=== PATIENT | female | born 1945 | race Caucasian/White ===

== ENCOUNTER 2025-06-26 09:58 | Outpatient (CLI) | payer MEDICARE, OTHER, SELFPAY ==
--- OUTSIDE RECORDS SUMMARY | 2025-06-26 10:27 | XMS_ITS | Patient Health Record ---
Author Organization [facility] Address [address] [place], [place] [id number] Care Team Providers Care End Trimmer Name Role Phone RUPERTO RADHA Unavailable [phone] Irene Webb Unavailable Unavailable Allergies Allergen (clinical drug ingredient) Drug/Non Drug Allergy documented on EMR Reaction Allergy Type Onset Date Status Compazine Unknown Drug Allergy 03/27/2018 active Reason For Referral No Information Medications Medication SIG (Take, Route, Frequency, Duration) Notes Start Date End Date Status Eliquis 5 MG Oral; Duration: 90 Days Active Vital Signs Height-cm 157.48 cm 05/15/2025 Weight-kg 86.19 kg 05/15/2025 Height 62.00 in 05/15/2025 Weight 190.016 lbs 05/15/2025 BMI 34.75 kg/m2 05/15/2025 Encounters Encounter Location Date Provider Diagnosis [facility] [place] [address] [facility] [address] [place], [place] [id number] 05/15/2025 RADHA HICKEY Onychomycosis B35.1 ; Pain in right toe(s) M79.674 ; Pain in left toe(s) M79.675 and 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, bilateral legs I70.213 [facility] [address] [place], [place] [id number] 07/01/2024 RADHA HICKEY Onychomycosis B35.1 ; Pain in right toe(s) M79.674 ; Pain in left toe(s) M79.675 and 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, bilateral legs I70.213 [facility] [address] [place], [place] [id number] 09/02/2024 RADHA HICKEY Onychomycosis B35.1 ; Pain in right toe(s) M79.674 ; Pain in left toe(s) M79.675 and 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, bilateral legs I70.213 [facility] [place] [address] [place], [place] [id number] 11/05/2024 RADHA HICKEY Onychomycosis B35.1 ; Pain in right toe(s) M79.674 ; Pain in left toe(s) M79.675 and 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, bilateral legs I70.213 Assessments Encounter Date Diagnosis (ICD Code) Assessment Notes Treatment Notes Treatment Clinical Notes Section Notes 07/01/2024 Pain in right toe(s) (ICD-10 - M79.674) 07/01/2024 Onychomycosis (ICD-10 - B35.1) Nails 1-5 Bilateral were debrided extensively with nail nippers and emery board, reducing length and girth to pink healthy tissue with any subungual debris and necrotic tissue removed 09/02/2024 Onychomycosis (ICD-10 - B35.1) Nails 1-5 Bilateral were debrided extensively with nail nippers and emery board, reducing length and girth to pink healthy tissue with any subungual debris and necrotic tissue removed 11/05/2024 Onychomycosis (ICD-10 - B35.1) Nails 1-5 Bilateral were debrided extensively with nail nippers and emery board, reducing length and girth to pink healthy tissue with any subungual debris and necrotic tissue removed 05/15/2025 Onychomycosis (ICD-10 - B35.1) Nails 1-5 Bilateral were debrided extensively with nail nippers and emery board, reducing length and girth to pink healthy tissue with any subungual debris and necrotic tissue removed 05/15/2025 Pain in right toe(s) (ICD-10 - M79.674) 11/05/2024 Pain in right toe(s) (ICD-10 - M79.674) 09/02/2024 Pain in right toe(s) (ICD-10 - M79.674) 07/01/2024 Pain in left toe(s) (ICD-10 - M79.675) 09/02/2024 Pain in left toe(s) (ICD-10 - M79.675) 11/05/2024 Pain in left toe(s) (ICD-10 - M79.675) 05/15/2025 Pain in left toe(s) (ICD-10 - M79.675) 07/01/2024 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, bilateral legs (ICD-10 - I70.213) 05/15/2025 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, bilateral legs (ICD-10 - I70.213) 11/05/2024 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, bilateral legs (ICD-10 - I70.213) 09/02/2024 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 [place], [place] [id number] FELA MELCHOR Spouse - patient is the spouse of the insured Medical (General) History Medical History History ICD Code dementia
--- OUTSIDE RECORDS SUMMARY | 2025-06-26 10:27 | XMS_ITS | Clinical Summary ---
Author Organization [facility] Address [address] [place] [address] Care Team Providers Care Livestock Showman Name Role Phone Jamal Gilliland MD Unavailable [phone] Adin Alas NP Primary Care Provide r Allergies No known active allergies Medications calcium carbonate (TUMS) 1,250 mg (500 mg elemental) chewable tablet Calcium 500 one daily Active acyclovir (ZOVIRAX) 5 % ointment acyclovir 5 % topical ointment Active dilTIAZem CD 180 mg 24 hr capsule 2 Active hydrALAZINE (APRESOLINE) 25 mg tablet hydralazine 25 mg tablet Active pantoprazole DR (PROTONIX) 40 mg EC tablet pantoprazole 40 mg tablet,delayed release Active carvediloL (COREG) 25 mg tablet carvedilol 25 mg tablet Active Active Problems Problem Noted Date Diagnosed Date Contusion of left knee 06/06/2019 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/2019 Bilateral cataracts 03/27/2019 Morbid obesity 03/27/2019 Onychomycosis due to dermatophyte 06/02/2016 Impaired fasting glucose 03/29/2016 Hyperhidrosis 09/15/2015 Hearing problem 05/28/2014 Benign essential hypertension 09/18/2013 Gastroesophageal reflux disease 09/18/2013 Surgical History Surgery Date Site/Laterality Comments SECTION Medical History Medical History Date Comments Acid reflux Family History Medical History Relation Name Comments Blood Clot Father Cancer Mother Relation Name Status Comments Father Mother Social History Tobacco Use Types Packs/Day Years Used Date Smoking Tobacco: Former Cigarettes 0.1 1 Smokeless Tobacco: Never Tobacco Cessation:Counseling Given: Not Answered Personal Safety Answer Date Recorded Getting School Help Needed Not on file 11/20 Comments Unknown Sex and Gender Information Value Date Recorded Sex Assigned at Not on file Legal Sex Female 5:38 PM DIRECTOR INTERNAL COMMUNICATIONS Gender Identity Not on file Sexual Orientation Not on file Obstetrics History Last Filed Vital Signs Vital Sign Reading Time Taken Comments Blood Pressure 141/81 09/03/2024 11:04 AM CDT Pulse 70 09/03/2024 11:04 AM CDT Temperature 36.1 C (97 F) 09/03/2024 11:04 AM CDT Respiratory Rate 18 09/03/2024 11:04 AM CDT Oxygen Saturation 94% 09/03/2024 11:04 AM CDT Inhaled Oxygen Concentration - - Weight 87.1 kg (192 lb) 09/03/2024 11:04 AM CDT Height 157.2 cm (5' 1.89) 09/03/2024 11:04 AM C DT Body Mass Index 35.24 09/03/2024 11:04 AM CDT Plan of Treatment Health Maintenance Due Date Last Done Comments Depression Screening 1945 Fall Risk Assessment 1945 Hepatitis C Screening 1945 Hepatitis B Screening 1964 Well Visit 65+ 2011 Covid-19 Vaccine (4 - 2023-2 5 season) 2024 11/05/2021, 01/25/2021, 12/29/2020 Osteoporosis Screening-Bone Density Scan 07/13/2025 07/13/2023 Influenza Vaccine (#1) 2025 DTaP/Tdap/Td Vaccine (3 - Td or Tdap) 05/12/2033 05/12/2023, 12/03/2021 Pneumococcal vaccine 65+ Completed 021, 09/21/2021, 03/14/2018, Additional history exists Zoster Vaccine Completed 12/15/2021, 05/21, 05/20/2021, Additional history exists Procedures Procedure Name Priority Date/Time Associated Diagnosis Comments DEXA AXIAL SKELETON BONE DENSITY 1 OR MORE SITES Schedule Routine, Read Routine (OP Routine) 07/13/2023 2:10 PM CDT Age-related osteoporosis without current pathological fracture from Last 3 Months or Most Recently Relevant to Health Maintenance Results * Dexa Axial Skeleton Bone Density 1 or 2 Site (07/13/2023 2:10 PM CDT) Anatomical Region Laterality Modality Body N/A Mammography 07/13/2023 9:21 PM CDT Narrative 07/13/2023 9:23 PM CDT EXAM DESCRIPTION: DEXA AXIAL SKELETON BONE DENSITY 1 OR MORE SITES REASON FOR STUDY: 78 y/o year old F with given history of: Screening Postmenopausal Operational Meteorologist/Model: ACSIAN A (S/N [id number]) CLINICAL INFORMATION: Current height: 61 inches Maximum height: 62 inches Weight: 206 pounds Risk factors: Postmenopausal, seizure disorder COMPARISON: None available FINDINGS: AP LUMBAR SPINE L1-L4: Total BMD is 0.883 g/cm2 T-score is -1.5 LEFT HIP: Total BMD is 0.748 g/cm2 T-score is -1.6 Femoral neck BMD is 0.619 g/cm2 T-score is -2.1 FRAX: 10 year risk for a major osteoporotic fracture is 13 %, 10 year risk for a hip fracture is 3.3 % IMPRESSION: Low Bone Mass. REFERENCE: Bone mineral density: Normal (T-score above or = -1.0) Low bone mass (T-score between -1.0 and -2.5) replaces the previously used term osteopenia Osteoporosis (T-score = or below -2.5) Medical evaluation for secondary causes of low bone mineral density may be appropriate. FRAX is a World Health Organization validated fracture risk assessment tool that calculates a person's 10 year probability of a major osteoporosis related fracture and hip fracture. According to the National Osteoporosis Foundation guidelines, postmenopausal women and men age 50 or older with low bone mass and a 10 year probability of a major osteoporosis related fracture = or greater than 20% or a 10 year probability of a hip fracture = or greater than 3% should be considered for treatment. For further information, including treatment recommendations, please refer to the 2019 ISCD Official Positions (http://www.iscd.org) and the NOF's Clinician's Guide to Prevention and Treatment of Osteoporosis (http://www.nof.org/professionals/clinical-guidelines) THIS IS AN ELECTRONICALLY VERIFIED FINAL REPORT 07/13/2023 9:23 PM - Electronically signed by Candelario Cruz M.D. MF: [email or web address] Report ID: [id number] Reading Location: [address] Note Candelario Cruz MD - 07/13/2023 EXAM DESCRIPTION: DEXA AXIAL SKELETON BONE DENSITY 1 OR MORE SITES REASON FOR STUDY: 78 y/o year old F with given history of: Screening Postmenopausal Operational Meteorologist/Model: ACSIAN A (S/N [id number]) CLINICAL INFORMATION: Current height: 61 inches Maximum height: 62 inches Weight: 206 pounds Risk factors: Postmenopausal, seizure disorder COMPARISON: None available FINDINGS: AP LUMBAR SPINE L1-L4: Total BMD is 0.883 g/cm2 T-score is -1.5 LEFT HIP: Total BMD is 0.748 g/cm2 T-score is -1.6 Femoral neck BMD is 0.619 g/cm2 T-score is -2.1 FRAX: 10 year risk for a major osteoporotic fracture is 13 %, 10 year risk for ahip fracture is 3.3 % IMPRESSION: Low Bone Mass. REFERENCE: Bone mineral density: Normal (T-score above or = -1.0) Low bone mass (T-score between -1.0 and -2.5) replaces thepreviously used term osteopenia Osteoporosis (T-score = or below -2.5) Medical evaluation for secondary causes of low bone mineral density may be appropriate. FRAX is a World Health Organization validated fracture risk assessmenttool that calculates a person's 10 year probability of a major osteoporosisrelated fracture and hip fracture. According to the National OsteoporosisFoundation guidelines, postmenopausal women and men age 50 or older with low bonemass and a 10 year probability of a major osteoporosis related fracture = or greater than 20% or a 10 year probability of a hip fracture = or greaterthan 3% should be considered for treatment. For further information, including treatment recommendations, please referto the 2019 ISCD Official Positions (http://www.iscd.org) and the NOF's Clinician's Guide to Prevention and Treatment of Osteoporosis (http://www.nof.org/professionals/clinical-guidelines) THIS IS AN ELECTRONICALLY VERIFIED FINAL REPORT 07/13/2023 9:23 PM - Electronically signed by Candelario Cruz M.D. MF: [email or web address] Report ID: [id number] Reading Location: [place] [address] Irene Webb MD IMG DXA PROCEDURES Final Result from Last 3 Months or Most Recently Relevant to Health Maintenance Insurance MEDICARE FOR LIFE FOR LIFE Member Subscriber Plan / Payer (Ef fective 2021-Present) Name:Sweetie Melchor Relation to Subscriber:Self Name:Sweetie Melchor Payer ID:[id number] (NAIC) Group ID:Not on file Type:CHEMO Address: [facility] [address] [place] [address] Care Teams Livestock Showman Relationship Specialty Start Date End Date Jamal Gilliland MD [address] [facility] [place] [address] PCP - Hospice Attending 07/19/24 Adin Alas NP [address] [id number] PCP - General Family Medicine 09/03/24
--- OUTSIDE RECORDS SUMMARY | 2025-06-26 10:27 | XMS_ITS ---
Author Organization [facility] Address [address] [place], [place] [id number] Care Team Providers Care Superintendent Seed Mill Name Role Phone AFRICARADHA BARRIENTOS Unavailable [phone] Jon Irene Unavailable Unavailable Allergies Allergen (clinical drug ingredient) Drug/Non Drug Allergy documented on EMR Reaction Allergy Type Onset Date Status Compazine Unknown Drug Allergy 03/27/2018 active REASON FOR VISIT *General care Medications Medication SIG (Take, Route, Frequency, Duration) Notes Start Date End Date Status Eliquis 5 MG Oral; Duration: 90 Days Active Vital Signs Height 62.00 in 05/15/2025 Weight 190.016 lbs 05/15/2025 BMI 34.75 kg/m2 05/15/2025 Height-cm 157.48 cm 05/15/2025 Weight-kg 86.19 kg 05/15/2025 Encounters Encounter Location Date Provider Diagnosis [facility] [place] [address] [place], [place] [id number] 05/15/2025 RADHA FALL Onychomycosis B35.1 ; Pain in right toe(s) M79.674 ; Pain in left toe(s) M79.675 and Atherosclerosis of nulato arteries of extremities with intermittent claudication, bilateral legs I70.213 Assessments Encounter Date Diagnosis (ICD Code) Assessment Notes Treatment Notes Treatment Clinical Notes Section Notes 05/15/2025 Onychomycosis (ICD-10 - B35.1) Nails 1-5 Bilateral were debrided extensively with nail nippers and emery board, reducing length and girth to pink healthy tissue with any subungual debris and necrotic tissue removed 05/15/2025 Pain in right toe(s) (ICD-10 - M79.674) 05/15/2025 Pain in left toe(s) (ICD-10 - M79.675) 05/15/2025 Atherosclerosis of nulato arteries of extremities with intermittent claudication, bilateral legs (ICD-10 - I70.213) Plan Of Treatment Treatment Notes Assessment Notes Onychomycosis Nails 1-5 Bilateral were debrided extensively with nail nippers and emery board, reducing length and girth to pink healthy tissue with any subungual debris and necrotic tissue removed Next Appt Details Follow Up: 9 weeks, Reason: Provider Name:RADHA DANG, 07/17/2025 02:20:00 PM, [address], [address], [id number], Progress Notes * SWEETIE MELCHOR ADOB: [birth year] (80 yo F)Acc No.[id number]:05/15/2025 Patient: Bobo DOMINGUEZSWEETIE WOODS Provider: Randa Fall DPM :1945 A ge:79 Y S ex:Female Date:05/15/2025 Address:[facility] [address] [facility] Subjective: * Chief Complaints: * 1 . *General care. * HPI: H PI: General care P atient presents to the office for at risk foot care. Patient states that their nails are thickened, elongated and painful. Patient states that it is aggravated by shoe gear. Onset is gradual. Patient denies being diabetic. Patient is taking prescription blood thinners. D ate last seen by Dr. Clemens was April 2025. I nitials LB. * Medical History: D ementia. * Family History: F ather: PRN - Father: :: Cancer,,known absent , :: Hypertension,,known absent . M other: PRN - Mother: :: Hypertension,,known absent . B rother: SIB - Brother: , :: Hypertension,,known absent . S ister: SIB - Sister: , :: Diabetes,,known absent , :: Arthritis,,known absent , :: Hypertension,,known absent . * Social History: M igrated Social History: M igrated Social History: History of tobacco use : , Smoking Status : Never smoked , Alcohol intake :. * Medications: T aking Eliquis 5 MG Tablet Oral , Medication List reviewed and reconciled with the patient * Allergies: C ompazine: Allergy - Onset Date 03/27/2018. Objective: * Vitals: W t: 190.016 lbs, Wt-k.19 kg, Ht: 62.00 in, Ht-cm: 157.48 cm, BMI: 34.75 Index, Body Surface Area: 1.94. * Examination: C onstitutional: Constitutional T he patient is awake, alert, well developed, well groomed and well nourished. . D ermatologic: Skin findings: S kin is thin, atrophic and lacking pedal hair. . Nail pathology: N ails 1-5 bilateral are elongated, thick, discolored, and dystrophic with subungual debris. They are painful to palpation . Ulcer: T here is no evidence of ulceration noted at this time . Hyperkeratotic Skin Lesion T here is no evidence of hyperkeratosis . M usculoskeletal: Muscle Strength M uscle strength is 5/5 in regards to dorsiflexion, plantarflexion, inversion, and eversion in bilateral lower extremities. . Foot Structure T he foot structure is noted to be normal bilaterally . Pain on palpation T here is no pain on palpation . Gait T here is normal gait noted . N eurologic: Muscle power: 5 /5 bilaterally . Gross sensation G ross sensation is intact to light touch. . V ascular: Dorsalis pedis pulse: 0 /4 bilateral . Posterior tibial pulse: 0 /4 bilaterally . Capillary refill: g reater than 3 seconds bilaterally .? Temperature gradient: w arm to cool bilaterally . ? Assessment: * Assessment: 1. O nychomycosis - B35.1 (Primary) 2 . P ain in right toe(s) - M79.674? 3. P ain in left toe(s) - M79.675 4 . A therosclerosis of nulato arteries of extremities with intermittent claudication, bilateral legs - I70.213 Plan: * Treatment: * Immunizations: Immunization record has been reviewed and updated. * Procedure Codes: 1 1721 DEBRIDE NAIL, 6 OR MORE, Modifiers: Q8 * Follow Up: 9 weeks * Billing Information: * Visit Code: * Procedure Codes: 79257 DEBRIDE NAIL, 6 OR MORE. Modifiers: Q8 * Electronic signature of RADHA LOKESH FALL on 06/26/2025 at 10:27 AM CDT Sign off status: Pending * Provider: Randa Fall DPM Date: 0 05/15/2025 Generated for Rick mcdermott/Paulo/Juani on: 0 06/26/2025 10:27 AM CDT History and Physical Notes * HPI (History of Present Illness) Category Sub-Category Detail Notes Category Not es HPI General care Patient presents to the office for at risk foot care. Patient states that their nails are thickened, elongated and painful. Patient states that it is aggravated by shoe gear. Onset is gradual. Patient denies being diabetic. Patient is taking prescription blood thinners. Date last seen by Dr. Clemens was April 2025. Initials LB Examination Category Sub-Category Detail Notes Category Not es Constitutional Constitutional The patient is a wake, alert, well developed, well groomed and well nourished. Dermatologic Skin findings: Skin is thin, at rophic and lacking pedal hair. Nail pathology: Nails 1-5 bilateral are elongated, thick, discolored, and dystrophic with subungual debris. They are painful to palpation Ulcer: There is no evidence of ulceration noted at this time Hyperkeratotic Skin Lesion There is no e vidence of hyperkeratosis Musculoskeletal Muscle Strength Muscle strength is 5/5 in regards to dorsiflexion, plantarflexion, inversion, and eversion in bilateral lower extremities. Pain on palpation There is no pain on palpation Foot Structure The foot structure i s noted to be normal bilaterally Gait There is normal gait noted Neurologic Muscle power: 5/5 bilaterally Gross sensation Gross sensation is i ntact to light touch. Vascular Dorsalis pedis pulse: 0/4 bilateral Posterior tibial pulse: 0/4 bilaterally Capillary refill: greater than 3 secon ds bilaterally Temperature gradient: warm to cool daniel adames
--- OUTSIDE RECORDS SUMMARY | 2025-06-26 10:28 | XMS_ITS | Encounter Summary ---
Author Organization [facility] Address [address] [place] [address] Care Team Providers Care Livestock Farm Manager Name Role Phone Lester Mane MD Primary Care Provider Encounter Details Date Type Department Care Team (Latest Contact Info) Description 04/11/2025 MyChart Message Enc [facility] - [place] [address] [address] [place] [address] Lester Mane MD [address] [facility] [address] [place], [place] [id number] Uti test picture invluded Social History Tobacco Use Types Packs/Day Years Used Date Smoking Tobacco: Never Smokeless Tobacco: Never Comments: smoked two packs a day for 10 years same house Alcohol Use Standard Drinks/Week Comments Not Currently 0 (1 standard drink = 0.6 oz pur e alcohol) PHQ-2 Answer Date Recorded Patient Health Questionnaire-2 Score 3 02/26/2025 Comments No Sex and Gender Information Value Date Recorded Sex Assigned at Female 02/26/2025 1:58 PM CDT Legal Sex Female 3:42 PM CDT Gender Identity Female 02/26/2025 1:58 PM CDT Sexual Orientation Straight 02/26/2025 1: 58 PM CDT documented as of this encounter Plan of Treatment Upcoming Encounters Date Type Department Care Team (Late st Contact Info) Description 07/03/2025 9:[address] [employer] Supervisor [facility] [place] [address] Dayanna Birch PA 3 [facility] [address] [place] [address] Candelario Espinoza MD Three [facility]. [address] [place] [address] 07/08/2025 2:00 PM CDT Office Visit [facility] - [place] [address] [address] [place] [address] Lester Mane MD [address] [address] 07/29/2025 2:00 PM CDT [facility] [address] [facility], [address] [place] [address] Dayanna Lopez NP 3 [facility] [address] [place] [address] documented as of this encounter Visit Diagnoses Not on filedocumented in this encounter Additional Health Concerns Assessment Noted Time PHQ-9 Depression Total Score: 14 025 3:34 PM CDT documented as of this encounter Care Teams Livestock Farm Manager Relationship Specialty Start Date End Date Lester Mane MD [address] [id number] PCP - General INTERNAL MEDICINE 12/27/24 documented as of this encounter
--- OUTSIDE RECORDS SUMMARY | 2025-06-26 10:28 | XMS_ITS | Encounter Summary ---
Author Organization [facility] Address [address] [place] [address] Care Team Providers Care Nursing Unit Coordinator Name Role Phone Lester Mane MD Primary Care Provider [phone] Encounter Details Date Type Department Care Team (Latest Contact Info) Description 03/01/2025 MyChart Message Enc [facility] Medical Group Multispecialty Care - [place] [address] [address] [address] [place] [address] Lester Mane MD [address] [facility] [address] [place], [place] [id number] eye medication has been changed and resent Social History Tobacco Use Types Packs/Day Years [...] PM CDT documented as of this encounter Progress Notes * Milka Rousseau MA - 03/03/2025 10:24 AM CDT Refill has been sent. 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 [address] [place] [address] Candelario Espinoza MD Three [facility]. [address] [place] [address] 07/08/2025 2:00 PM CDT Office Visit [facility] Medical Group Multispecialty Care - [place] [address] [address] [address] [place] [address] Lester Mane MD [facility] [address] 07/29/2025 2:00 PM CDT Office Visit [facility] Medical [facility] 3 [facility], [address] [place] [id number] Dayanna Lopez NP [address] [facility] [address] [place] [address] documented as of this encounter Visit Diagnoses Diagnosis Acute bacterial conjunctivitis of both eyes Paroxysmal atrial fibrillation ([facility]/HCC [facility]/HCC) Atrial fibrillation documented in this encounter Additional Health Concerns Assessment Noted Time PHQ-9 Depression Total Score: 14 025 3:34 PM CDT documented as of this encounter Care Teams Nursing Unit Coordinator Relationship Specialty Start Date End Date Lester Mane MD [address] [place] [id number] PCP - General INTERNAL MEDICINE 12/27/24 documented as of this encounter
--- OUTSIDE RECORDS SUMMARY | 2025-06-26 10:28 | XMS_ITS | Clinical Summary ---
Author Organization [facility] Address [address] [place] [address] Care Team Providers Care Clerical Receptionist Name Role Phone Adin Alas APRN-FILM CLEANER Primary Care Provi mitchell Source Comments [facility],non-owned Affiliates and Associated Physician Practices is amultiple site organization consisting of ambulatory clinics and hospital sitesin [place], [place], [place] and [place]. This disclosure is being madepursuant to the Care Everywhere program and may not contain all information available regarding this patient. Last updated 18.[facility] Allergies No known active allergies Medications * Be aware that medications may not be up to date on this document. Alwaysverify current medications with the patient. hydrALAZINE (Apresoline) 25 MG tablet Take 1 (one) tablet by mouth 2 times daily Active calcium carbonate (Tums) 500 MG chew tablet Take 1 (one) tablet by mouth daily with food Active dilTIAZem coated beads 24hr (Cartia XT) 180 MG capsule Take 2 (two) capsules by mouth once daily Active carvedilol (Coreg) 25 MG tablet Take 1 (one) tablet by mouth 2 times daily with morning and evening meal Active Misc. Devices (Total Comfort Chair Cushion) MISC Active apixaban (Eliquis) 5 MG tabletIndication s:Atrial Fibrillation Take 1 (one) tablet by mouth 2 times daily Reasons: Atrial Fibrillation 180 tablet 1 4 Active hydrocortisone, rectal, (Anusol-HC) 2.5 % cream Insert into the rectum at bedtime 28 g 4 4 Active omeprazole (PriLOSEC) 20 MG capsule Take 1 (one) capsule by mouth daily before breakfast Active Active Problems Problem Noted Date Diagnosed Date Atrial fibrillation 10/25/2024 Primary hypertension 10/25/2024 Cognitive impairment 10/25/2024 Hyponatremia 10/25/2024 Family History Medical History Relation Name Comments Hypertension Brother Cancer - Other Father Hypertension Father Arrhthymia Mother Diabetes - Type 2 Sister Hypertension Sister Relation Name Status Comments Brother Father Mother Sister Social History Tobacco Use Types Packs/Day Years Used Date Smoking Tobacco: Never Smokeless Tobacco: Never Tobacco Cessation:Counseling Given: Not Answered Comments Unknown Sex and Gender Information Value Date Recorded Sex Assigned at Not on file Legal Sex Female 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 SERVICE ENGINEER Gender Identity Not on file Sexual Orientation Not on file Last Filed Vital Signs Vital Sign Reading Time Taken Comments Blood Pressure 126/82 10/25/2024 9:43 AM ELECTRONIC FIELD SERVICE ENGINEER Pulse 61 10/25/2024 9:43 AM ELECTRONIC FIELD SERVICE ENGINEER Temperature - - Respiratory Rate - - Oxygen Saturation 94% 10/25/2024 9:43 AM ELECTRONIC FIELD SERVICE ENGINEER Inhaled Oxygen Concentration - - Weight 88.7 kg (195 lb 9.6 oz) 10/25/2024 9:42 A M ELECTRONIC FIELD SERVICE ENGINEER Height 157.5 cm (5' 2) 10/25/2024 9:42 AM ELECTRONIC FIELD SERVICE ENGINEER Body Mass Index 35.78 10/25/2024 9:42 AM ELECTRONIC FIELD SERVICE ENGINEER Plan of Treatment Health Maintenance Due Date Last Done Comments MEDICARE AWV 12 MONTHS 1945 HEPATITIS C SCREENING 06/16/1964 DTAP/TDAP/TD VACCINES (1 - Tdap) 1965 PNEUMOCOCCAL VACCINE 50+ (1 of 1 - PCV) 1996 ZOSTER VACCINE (1 of 2) 1996 Respiratory Syncytial Virus (RSV) Vaccine Pt: or over 60 yrs (1 - 1-dose 75+ series) 2021 COVID-19 VACCINE (4 - 2023-2 5 season) 2024 11/05/2021, 01/26/2021, 12/29/2020 DEPRESSION SCREENING 11/20/2024 INFLUENZA VACCINE (#1) 2025 BONE DENSITY TESTING Completed 07/13/2023 HEPATITIS B VACCINE Aged Out No longe r eligible based on patient's age to complete this topic HIB VACCINE Aged Out No longer eligi ble based on patient's age to complete this topic HPV VACCINE Aged Out No longer eligi ble based on patient's age to complete this topic MENINGOCOCCAL (Group B) VACCINE SHARED DECISION-MAKING Aged Out No longer eligible based on patient's age to complete this topic MENINGOCOCCAL GROUPS A/C/Y/W VACCINE Aged Out No longer eligible b ased on patient's age to complete this topic Insurance MEDICARE [facility] MEDICARE Care Teams Clerical Receptionist Relationship Specialty Start Date End Date Adin Alas, SUPERVISING EDITOR TRAILER-FILM CLEANER [address] [id number] PCP - General Nurse Practitioner Family 07/24/24
--- OUTSIDE RECORDS SUMMARY | 2025-06-26 10:28 | XMS_ITS | Encounter Summary ---
Author Organization [facility] Address [address] [place] [address] Care Team Providers Care Chief Electrician Name Role Phone Lester Mane MD Primary Care Provider [phone] Encounter Details Date Type Department Care Team (Latest Contact Info) Description 05/19/2025 Results Follow-Up [facility] Medical Group Multispecialty Care - [place] [address] [address] [address] [place] [address] Lester Mane MD 118[address] [facility] [address] [place] [address] EKG WELCHALLEN ACQUIRED Social History Tobacco Use Types Packs/Day Years [...] 07/03/2025 9:[address] [facility] Lorry Weigher [address] [place] [address] Dayanna Birch PA 3 [facility] [address] [place] [address] Candelario Espinoza MD Three [facility]. [address] [place] [address] 07/08/2025 2:00 PM CDT Office Visit [facility] Medical [facility] Multispecialty Care - [place] [address] [address] [address] [place] [address] Lester Mane MD [address] [address] 07/29/2025 2:00 PM CDT Office Visit [facility] 3 [facility], [address] [place] [address] Dayanna Lopez NP 3 [facility] [address] [place] [address] documented as of this encounter Visit Diagnoses Not on filedocumented in this encounter Additional Health Concerns Assessment Noted Time PHQ-9 Depression Total Score: 14 025 3:34 PM CDT documented as of this encounter Care Teams Chief Electrician Relationship Specialty Start Date End Date Lester Mane MD [address] [phone] PCP - General INTERNAL MEDICINE 12/27/24 documented as of this encounter
--- OUTSIDE RECORDS SUMMARY | 2025-06-26 10:28 | XMS_ITS | Encounter Summary ---
Author Organization [facility] Address [address] [place] [address] Care Team Providers Care Medical Doctor Nuclear Medicine Name Role Phone Lester Mane MD Primary Care Provider [phone] Encounter Details Date Type Department Care Team (Latest Contact Info) Description 03/20/2025 MyChart Message Enc [facility] Medical Group Multispecialty Care - [place] [address] [address] [address] [place] [address] Lester Mane MD 1188 [facility] [address] [place], [place] [phone] Update chart for thyroid dr Social History Tobacco Use Types Packs/Day Years [...] 07/03/2025 9:[address] [facility] Wage Adjuster [facility] [place] [address] Dayanna Birch PA 3 [facility] [address] [place] [address] Candelario Espinoza MD Three [facility]. [address] [place] [address] 07/08/2025 2:00 PM CDT Office Visit [facility] Medical [facility] Multispecialty Care - [place] [address] [address] [address] [place] [address] Lester Mane MD [address] [address] 07/29/2025 2:00 PM CDT Office Visit [facility] 3 [facility], [address] [place] [address] Dayanna Lopez NP 3 [facility] [address] [place] [address] documented as of this encounter Visit Diagnoses Not on filedocumented in this encounter Additional Health Concerns Assessment Noted Time PHQ-9 Depression Total Score: 14 025 3:34 PM CDT documented as of this encounter Care Teams Medical Doctor Nuclear Medicine Relationship Specialty Start Date End Date Lester Mane MD [address] [phone] PCP - General INTERNAL MEDICINE 12/27/24 documented as of this encounter
--- OUTSIDE RECORDS SUMMARY | 2025-06-26 10:29 | XMS_ITS | Encounter Summary ---
Author Organization [facility] Address [address] [place] [address] Care Team Providers Care Oil Plant Operator Name Role Phone Lester Mane MD Primary Care Provider [phone] Encounter Details Date Type Department Care Team (Latest Contact Info) Description 06/03/2025 Results Follow-Up [facility] Medical Group Multispecialty Care - [place] [address] [address] [address] [place] [address] [place] [address] [place] [address] URINALYSIS, BASIC METABOLIC PANEL, URINE BACTERIA CULTURE Social History Tobacco Use Types Packs/Day Years [...] 07/03/2025 9:[address] [facility] Mechanical Maintenance Worker [facility] [place] [address] Dayanna Birch PA 3 [facility] [address] [place] [address] Candelario Espinoza MD Three [facility]. [address] [place] [address] 07/08/2025 2:00 PM CDT Office Visit [facility] Multispecialty Care - [place] [address] [address] [address] [place] [address] Lester Mane MD [address] [address] 07/29/2025 2:00 PM CDT [facility] 3 [facility], [address] [place] [address] Dayanna Lopez COFFEE GROWER [address] [facility] [address] [place] [address] documented as of this encounter Visit Diagnoses Not on filedocumented in this encounter Additional Health Concerns Assessment Noted Time PHQ-9 Depression Total Score: 14 025 3:34 PM CDT documented as of this encounter Care Teams Oil Plant Operator Relationship Specialty Start Date End Date Lester Mane MD 1188 [facility] 157 [place] [address] PCP - General INTERNAL MEDICINE 12/27/24 documented as of this encounter
--- OUTSIDE RECORDS SUMMARY | 2025-06-26 10:29 | XMS_ITS | Encounter Summary ---
Author Organization [facility] Address [address] [place] [address] Care Team Providers Care Adult Services Librarian Name Role Phone Lester Mane MD Primary Care Provider [phone] Encounter Details Date Type Department Care Team (Latest Contact Info) Description 05/14/2025 Results Follow-Up [facility] Medical Group Multispecialty Care - [place] [address] [address] [address] [place] [address] Lester Mane MD 1188 [facility] 157 [place] [address] URINALYSIS AUTO DIP Social History Tobacco Use Types Packs/Day Years [...] 07/03/2025 9:[address] [facility] Manager Membership [facility] [place] [address] Dayanna Birch PA 3 [facility] [address] [place] [address] Candelario Espinoza MD Three [facility]. [address] [place] [address] 07/08/2025 2:00 PM CDT Office Visit [facility] Medical [facility] Multispecialty Care - [place] [address] [address] [address] [place], [place] [address] Lester Mane MD [address] [address] 07/29/2025 2:00 PM CDT Office Visit [facility] 3 [facility], [address] [place] [address] Dayanna Lopez NP 3 [facility] [address] [place] [address] documented as of this encounter Visit Diagnoses Not on filedocumented in this encounter Additional Health Concerns Assessment Noted Time PHQ-9 Depression Total Score: 14 025 3:34 PM CDT documented as of this encounter Care Teams Adult Services Librarian Relationship Specialty Start Date End Date Lester Mane MD [address] [phone] PCP - General INTERNAL MEDICINE 12/27/24 documented as of this encounter
--- OUTSIDE RECORDS SUMMARY | 2025-06-26 10:29 | XMS_ITS | Clinical Summary ---
Author Organization [facility] Address [address] [place] [address] Care Team Providers Care Senior Mechanical Project Manager Name Role Phone Lester Mane MD Primary Care Provider [phone] Allergies Active Allergy Reactions Criticality Noted Date Comments Prochlorperazine Swelling 05/09/2013 Compazine Sertraline Anxiety,Dizziness Low 05/25/2024 Medications carvedilol (COREG) 25 MG tabletIndicatio ns:Paroxysmal atrial fibrillation (CMS/HCC HHS/HCC) Take 1 tablet (25 mg total) by mouth 2 (two) times daily. 180 tablet 1 04/26/20 25 Active apixaban (ELIQUIS) 5 MG tabletIndicatio ns:Paroxysmal atrial fibrillation (CMS/HCC HHS/HCC) Take 1 tablet (5 mg total) by mouth 2 (two) times daily. 180 tablet 1 04/26/20 25 Active hydrALAZINE (APRESOLINE) 25 MG tabletIndicatio ns:Primary hypertension Take 1 tablet (25 mg total) by mouth 2 (two) times daily. 180 tablet 1 04/26/20 25 Active pantoprazole EC (PROTONIX) 40 MG tabletIndicatio ns:Gastroesopha geal reflux disease without esophagitis Take 1 tablet (40 mg total) by mouth daily. 90 tablet 1 04/26/20 25 Active triamcinolone (KENALOG) 0.1 % ointment Apply topically 2 (two) times daily. 30 g 2 05/07/20 25 Active Calcium-Magnesi um-Vitamin D (CALCIUM 1200+D3 OR) Take 1 capsule by mouth daily. Active hydrOXYzine (ATARAX) 50 MG tabletIndicatio ns:Dermatitis Take 1 tablet (50 mg total) by mouth nightly. 30 tablet 05/14/20 Active Roflumilast 0.3 % CreamIndication s:Dermatitis Apply 1 Application topically daily. Apply on rash on body 60 g 3 05/14/20 25 Active dilTIAZem CD (CARDIZEM CD) 180 MG 24 hr capsule Take 1 capsule (180 mg total) by mouth daily. 30 capsule 2 05/19/20 25 Active LYMPHEDEMA PUMP, DME,Indications :Lymphedema Use twice daily for lymphedema on both legs. 1 Device 05/26/20 Active amiodarone (PACERONE) 200 MG tablet Take 1 tablet (200 mg total) by mouth 2 (two) times daily. 60 tablet 3 06/13/20 Active furosemide (LASIX) 20 MG tabletIndicatio ns:Lymphedema Take 1 tablet (20 mg total) by mouth every morning. 90 tablet 06/24/20 Active potassium chloride CR (K-TAB) 10 MEQ Tab CR tabletIndicatio ns:Drug therapy Take 2 tablets (20 mEq total) by mouth daily. 180 tablet 06/24/20 Active dronedarone (MULTAQ) 400 MG tabletIndicatio ns:Paroxysmal atrial fibrillation (CMS/HCC HHS/HCC) Take 1 tablet (400 mg total) by mouth 2 (two) times daily with meals. 60 tablet 04/26/20 25 2024 Discontinued potassium chloride CR (K-TAB) 10 MEQ Tab CR tablet Take 2 tablets (20 mEq total) by mouth daily. 60 tablet 05/07/20 25 2024 Discontinued cephALEXin (KEFLEX) 500 MG capsuleIndicati ons:Cellulitis of left lower extremity Take 1 capsule (500 mg total) by mouth 2 (two) times daily for 7 days. 14 capsule 05/26/20 25 2024 furosemide (LASIX) 20 MG tabletIndicatio ns:Lymphedema Take 1 tablet (20 mg total) by mouth daily. 30 tablet 05/26/20 25 2024 Discontinued(R eorder) potassium chloride CR (K-TAB) 10 MEQ Tab CR tablet TAKE 2 TABLETS(20 MEQ) BY MOUTH DAILY 60 tablet 05/30/20 25 2024 Discontinued(R eorder) dronedarone (MULTAQ) 400 MG tabletIndicatio ns:Paroxysmal atrial fibrillation ([facility]) TAKE 1 TABLET(400 MG) BY MOUTH TWICE DAILY WITH MEALS 60 tablet 1 06/07/20 25 2024 Discontinued(O ther- Please enter comment in Notes field) furosemide (LASIX) 20 MG tabletIndicatio ns:Lymphedema Take 1 tablet (20 mg total) by mouth daily. 30 tablet 06/24/20 25 2024 Discontinued potassium chloride CR (K-TAB) 10 MEQ Tab CR tabletIndicatio ns:Drug therapy Take 2 tablets (20 mEq total) by mouth daily. 60 tablet 06/24/20 25 2024 Discontinued(R eorder) furosemide (LASIX) 20 MG tabletIndicatio ns:Lymphedema TAKE 1 TABLET(20 MG) BY MOUTH DAILY 90 tablet 06/24/20 25 2024 Discontinued(R eorder) Active Problems Problem Noted Date Diagnosed Date Other thrombophilia 02/26/2025 Osteopenia of multiple sites 02/26/2025 ILD (interstitial lung disease) ([facility] ) 02/26/2025 Moderate dementia with other behavioral disturbance, unspecified dementia type 02/26/2025 Acute bacterial conjunctivitis of both eyes 07/2025 Primary hypertension 02/26/2025 Environmental and seasonal allergies 02/26/2025 Irritable bowel syndrome with diarrhea Paroxysmal atrial fibrillation ([facility]) 02/26/2025 Gastroesophageal reflux disease without esophagi tis 02/26/2025 Cognitive impairment 10/25/2024 Hyponatremia 10/25/2024 Contusion of left knee 06/06/2019 Bilateral cataracts 03/27/2019 Morbid obesity 03/27/2019 Other terminal operations manager (current) drug therapy 6 Overview (04/09/2025): Location: None;Severity: Moderate;Progress: Stable;Added By: Irene Webb;Add to Current Problems: YES Onychomycosis due to dermatophyte 06/02/2016 Overview (04/09/2025): Location: None;Severity: Moderate;Progress: Stable;Added By: Nithya Lui;Add to Current Problems: YES Impaired fasting glucose 03/29/2016 Overview (04/09/2025): Location: None;Severity: Moderate;Progress: Stable;Added By: Irene Webb;Add to Current Problems: YES Malaise and fatigue 12/10/2015 Overview (04/09/2025): Location: None;Severity: Moderate;Progress: Stable;Added By: Ligia Lemons;Add to Current Problems: YES Hyperhidrosis 09/15/2015 Overview (04/09/2025): Location: None;Severity: Moderate;Progress: Stable;Added By: Irene Webb;Add to Current Problems: NO Eosinophilic disorder 03/09/2015 Overview (04/09/2025): Location: None;Severity: Moderate;Progress: Stable;Added By: Irene Webb;Add to Current Problems: NO Hearing problem 05/28/2014 Overview (04/09/2025): Location: None;Severity: Moderate;Progress: Stable;Added By: Irene Webb;Add to Current Problems: NO Pain in limb 05/06/2014 Overview (04/09/2025): Location: None;Severity: Moderate;Progress: Stable;Added By: Ligia Lemons;Add to Current Problems: NO Cough 09/18/2013 Overview (04/09/2025): Location: None;Severity: Moderate;Progress: Stable;Added By: Irene Webb;Add to Current Problems: YES Impacted cerumen 05/09/2013 Overview (04/09/2025): Location: None;Severity: Moderate;Progress: Stable;Added By: Sadlowski, Ligia;Add to Current Problems: NO Encounters Date Type Department Care Team Description 06/24/2025 Orders Only [facility] [place] - [place] [address] [address] [facility] [address] [place] [address] Lester Mane MD 06/24/2025 Telephone [facility] [place] [address] [address] [facility] [address] [place] [address] Lester Mane MD Compression Fx 06/13/2025 10:30 AM CDT Office Visit [facility] [place] on [facility], [address] [address] Dayanna Birch PA Follow Up; Atrial Fibrillation (Cv fu) 06/13/2025 Travel 06/03/2025 10:40 AM CDT Laboratory Only [facility] [place] [address] [facility] [address] [place] [address] Lester Mane MD 06/03/2025 - 06/03/2025 11:59 PM CDT Hospital Encounter [facility] [address] Lester Mane MD Discharge Disposition: Home or Self Care (Routine Discharge) 06/03/2025 Results [facility] [place] [facility] [place] [address] [facility] [address] [place] [address] Lester Mane MD URINALYSIS, BASIC METABOLIC PANEL, URINE BACTERIA CULTURE 06/03/2025 Travel 06/02/2025 Telephone [facility] [place] [address] [address] [facility] [address] [place] [address] Lester Mane MD Error 06/02/2025 MyChart Message Enc [facility] [place] [address] [address] [facility] [address] [place] [address] Lester Mane MD Denita legal worse 05/26/2025 10:20 AM CDT Office Visit [place] [address] [facility] [address] [place] [address] Lester Mane MD Leg Pain (Pt states they are to swollen for compression socks. Red swollen, spots all over lower left and right foot ) 05/26/2025 Scan [facility] Scanned, [facility] 05/26/2025 Travel 05/19/2025 Results Follow-Up [place] [address] [address] [facility] [address] [place] [address] Lester Mane MD EKG [place]EL[place] ACQUIRED 05/16/2025 1:40 PM CDT Allied Health/Nurse Visit [place] [address] [address] [place] [address] [address] [place] [address] Lester Mane MD Procedure 05/16/2025 Telephone [place] [address] [address] [place] [address] [address] [place] [address] Lester Mane MD Follow Up Call 05/16/2025 Travel 05/14/2025 1:00 PM CDT Office Visit [place] [address] [facility] [address] [place] [address] Lester Mane MD Follow Up; Swelling; Itching (Pt POA states urgent care d/x her with cellulitis. Pt went to the ER and states her legs have been itching and rash and is spreading up. E/r stated it is not cellulitis.) 05/14/2025 Results Follow-Up [place] [address] [address] [facility] [address] [place] [address] Lester Mane MD URINALYSIS AUTO DIP 05/14/2025 MyChart Message Enc [place] [address] [address] [facility] [address] [place] [address] Lester Mane MD Pulse rate update 05/14/2025 Travel 05/07/2025 12:01 PM CDT Anesthesia Event [facility] [place] [address] Abby Akers MD Quinn, Danielle CARMELA Knox 05/07/2025 10:59 AM CDT - 05/07/2025 1:57 PM CDT Hospital Encounter [facility] [place] [address] Dayanna Birch PA Hushion, Michael J, MD Schuessler, Martha E, MD Discharge Disposition: Home or Self Care (Routine Discharge) 05/07/2025 9:15 AM CDT - 05/07/2025 10:25 AM CDT Emergency [facility] [place] [address] Milad Maza PA Rash Discharge Disposition: Home or Self Care (Routine Discharge) 05/07/2025 8:37 AM CDT Hospital Encounter [facility] [place] [address] Milad Arrington MD Discharge Disposition: Home or Self Care (Routine Discharge) 05/07/2025 Results Follow-Up [facility] on [address] [address] Shaina Rivas RN BASIC METABOLIC PANEL, CBC W/DIFF AUTOMATED, PROTHROMBIN TIME, VENOUS 05/07/2025 Travel 05/06/2025 Telephone [facility] Multispecialty Care - [address] [place] [address] Lester Mane MD Appointment Request 05/05/2025 MyChart Message Enc [facility] on [address] [address] Milad Arrington MD Cardio conversion wed 05/02/2025 Patient Outreach [facility] - [place] [address] [address] [facility] [address] [place] [address] Viri Gómez, ELEMENTARY SCHOOL PROFESSIONAL Care Management 04/30/2025 1:00 PM CDT Office Visit [facility] [address] [facility], [address] [place] [id number] Dayanna Lopez NP Memory Loss (Patient's daughter states she started getting dementia and several other health problems after she contracted Covid.) 04/30/2025 Travel 04/17/2025 1:45 PM CDT Office Visit [facility], [address] [place] [address] Dayanna Birch PA Follow Up; Atrial Fibrillation 04/17/2025 Results Follow-Up [facility] - [place] [address] [address] [facility] [address] [place] [address] Lester Mane MD TSH W/REFLEX, THYROXINE, FREE (FT4), FREE T3 04/17/2025 Telephone [facility] - [place] [address] [address] [facility] [address] [place] [address] Lester Mane MD Medication 04/17/2025 Travel 04/16/2025 11:00 AM CDT Laboratory Only [facility] - [place] [address] [facility] [address] [place] [address] Lester Mane MD 04/16/2025 - 04/16/2025 11:59 PM CDT Hospital Encounter [facility] [address] [place] [address] Discharge Disposition: Home or Self Care (Routine Discharge) 04/16/2025 Orders Only [facility] - [place] [address] [facility] [address] [place] [address] Lester Mane MD 04/16/2025 Travel 04/11/2025 4:20 PM CDT [facility]icine [facility] [place] [address] [address] [place] [address] Lester Mane MD Follow Up; UTI Symptoms 04/11/2025 [facility] [place] [address] [address] [facility] [address] [place] [address] Lester Mane MD URINALYSIS AUTO DIP 04/11/2025 MyChart Message Enc [facility] [place] - [address] [place] [address] Lester Mane MD Uti test picture invluded 04/11/2025 Travel 04/07/2025 Results Follow-Up [facility] on [facility], [address] [address] Shaina Rivas RN CLINIC - [address] [facility] - Today 04/04/2025 2:12 PM CDT - 04/04/2025 11:59 PM CDT Hospital Encounter [facility] [place] [address] Lester Mane MD Discharge Disposition: Home or Self Care (Routine Discharge) 04/04/2025 Travel from Last 3 Months Immunizations Immunization Administration Dates Next Due MODERNA COVID-19 (12+) MRNA, LNP-S, PF, 100 MCG/ 0.5 ML DOSE 01/25/2021,12/29/2020 PFIZER COVID-19 (ORIGINAL FO RMULATION, PURPLE CAP) mRNA, LNP-S, PF, 30 MCG/0.3 ML DOSE 11/05/2021 Pneumococcal (Pneumovax 23) 09/21/2021, 3 Pneumococcal (Prevnar 13) 03/14/2018 Pneumococcal (Prevnar 20) 05/12/2023 Shingrix 06/08/2021 Tdap (Generic) 05/12/2023 Zoster (Zostavax) [address] Unt/0.65Ml 05/27/2013 Family History Medical History Relation Comments COPD Brother Cancer Daughter Breast Cancer Father Arthritis Mother Heart Disease Mother Pacemaker at 80 Depression Sister 1 After covid Heart Disease Sister 1 Mental Health Sister 1 After covid Stroke Sister 1 After covid Heart Disease Sister 2 All sistets and many nieces have high blood pressure Hypertension Sister 3 Many sisters and brithers and neices on maternal side Stroke Sister 3 After covid Relation Status Comments Brother Daughter Alive Father Mother Sister 1 Sister 2 Sister 3 Social History Tobacco Use Types Packs/Day Years Used Date Smoking Tobacco: Never Smokeless Tobacco: Never Tobacco Cessation:Counseling Given: Yes Comments: smoked two packs a day for [...] Orientation Straight 02/26/2025 1: 58 PM CDT Last Filed Vital Signs Vital Sign Reading Time Taken Comments Blood Pressure 120/74 06/13/2025 10:34 AM CDT Pulse 96 06/13/2025 10:34 AM CDT Temperature 36.3 C (97.4 F) 05/26/2025 10:32 AM CDT Respiratory Rate 16 05/26/2025 10:32 AM CDT Oxygen Saturation 96% 06/13/2025 10:34 AM CDT Inhaled Oxygen Concentration - - Weight 89.4 kg (197 lb) 06/13/2025 10:34 AM CDT Height 157.5 cm (5' 2) 06/13/2025 10:34 AM CDT Body Mass Index 36.03 06/13/2025 10:34 AM CDT Plan of Treatment Upcoming Encounters Date Type Department Care Team (Late st Contact Info) Description 07/03/2025 9:[address] [facility] [place] [address] Dayanna Birch PA [address] [facility] [address] [place] [address] Milad Arrington MD [facility] [place]. [address] [place] [address] 07/08/2025 2:00 PM CDT Office Visit [facility] Multispecialty Care - [place] [address] [address] [place] [address] Lester Mane MD [address] [facility] [address] [place] [address] 07/29/2025 2:00 PM CDT Office Visit [facility] [address] [facility], [address] [place] [address] Dayanna Lopez NP [address] [facility] [address] [place] [address] Health Maintenance Due Date Last Done Comments Annual Medicare Wellness Visit 2011 RSV Immunization or 60+ Years (1 - 1-dose 75+ series) 2021 Zoster Vaccines (3 of 3) 08/03/2021 06/08/2021, 07/0 06/2013 COVID-19 Vaccine ( season) 2024 11/05/2021, 01/25/2021, 12/29/2020 DTaP, Tdap and Td Vaccines (2 - Td or Tdap) 05/12/2033 05/12/2023 Pneumococcal Vaccine: 50+ Years Completed 05/12/2023, 09/21/2021, 03/14/2018, Additional history exists PHQ-2 (Physician [place]) Completed 02/26/2025 Hepatitis C Completed 03/11/2025 Dexa Scan (General) Completed 03/18/2025, 07/13/2023, 07/13/2023 Meningococcal B Vaccine Aged Out No l onger eligible based on patient's age to complete this topic Meningococcal Vaccine Aged Out No renetta saira eligible based on patient's age to complete this topic RSV Immunizations Under 20 Months Aged Out No longer eligible based on patient's age to complete this topic Procedures Procedure Name Priority Date/Time Associated Diagnosis Comments COLLECTION VENOUS BLOOD VENIPUNCTURE Routine 06/03/2025 10:48 AM CDT Hypokalemia URINE BACTERIA CULTURE Routine 10:40 AM CDT Acute cystitis without hematuria BASIC METABOLIC PANEL Routine 06/03/2025 10:40 AM CDT Hypokalemia URINALYSIS, AUTO, COMPLETE Routine 06/03/2025 10:40 AM CDT Acute cystitis without hematuria ELECTROCARDIOGRAM (NON MIDMARK ACQUIRED) Routine 05/16/2025 2:01 PM CDT Primary hypertension URINALYSIS AUTO DIP Routine 05/14/2025 Dysuria XA CARDIOVERSION DCC Routine 05/07/2025 12:34 PM CDT Paroxysmal atrial fibrillation (CMS/HCC HHS/HCC) ECG 12-LEAD Routine 05/07/2025 12:19 PM CDT Paroxysmal atrial fibrillation (CMS/HCC HHS/HCC) Pain in limb Other terminal operations manager (current) drug therapy Onychomycosis due to dermatophyte Morbid obesity (CMS/HCC) Malaise and fatigue Impaired fasting glucose Impacted cerumen Hyponatremia Hyperhidrosis Hearing problem Eosinophilic disorder Cough Contusion of left knee Cognitive impairment Bilateral cataracts Gastroesophageal reflux disease without esophagitis Irritable bowel syndrome with diarrhea Environmental and seasonal allergies Primary hypertension Acute bacterial conjunctivitis of both eyes Moderate dementia with other behavioral disturbance, unspecified dementia type (CMS/HCC) ILD (interstitial lung disease) (CMS/HCC HHS/HCC) Osteopenia of multiple sites Other thrombophilia (HHS/HCC) PROTHROMBIN TIME, VENOUS Routine 025 8:48 AM CDT Paroxysmal atrial fibrillation (CMS/HCC HHS/HCC) CBC W/DIFF AUTOMATED Routine 05/07/2025 8:48 AM CDT Paroxysmal atrial fibrillation (CMS/HCC HHS/HCC) BASIC METABOLIC PANEL Routine 05/07/2025 8:48 AM CDT Paroxysmal atrial fibrillation (CMS/HCC HHS/HCC) ELECTROCARDIOGRAM (NON MIDMARK ACQUIRED) Routine 04/17/2025 1:43 PM CDT Paroxysmal atrial fibrillation (CMS/HCC HHS/HCC) THYROXINE, FREE (FT4) Routine 04/16/2025 10:40 AM CDT Multiple thyroid nodules FREE T3 Routine 04/16/2025 10:40 AM CDT Multiple thyroid nodules TSH W/REFLEX Routine 04/16/2025 10:40 AM CDT Multiple thyroid nodules COLLECTION VENOUS BLOOD VENIPUNCTURE Routine 04/16/2025 10:39 AM CDT Multiple thyroid nodules URINALYSIS AUTO DIP Routine 04/11/2025 Dysuria USE ECHOCARDIOGRAM Routine 04/04/2025 2: 48 PM CDT Paroxysmal atrial fibrillation (CMS/HCC HHS/HCC) MOBILE CONTINUOUS TELEMETRY Routine 04/02/2025 9:00 AM CDT Paroxysmal atrial fibrillation (CMS/HCC HHS/HCC) BONE DENSITY/DEXA Routine 03/18/2025 2:1 0 PM CDT Osteopenia of multiple sites HEPATITIS C ANTIBODY Routine 03/11/2025 2:29 PM CDT Establishing care with new doctor, encounter for General medical exam Drug therapy from Last 3 Months or Most Recently Relevant to Health Maintenance Results * (ABNORMAL) URINALYSIS (06/03/2025 10:40 AM CDT) [facility] Signature COLOR (U) YELLOW 06/03/2025 8:31 PM [facility] TRANSPARENCY CLEAR CLEAR 06/03/2025 8:31 PM [facility] SPECIFIC GRAVITY (U) <1.005 1.003 - 1.040 06/03/2025 8:31 PM T [facility] U PH 6.0 5.0 - 9.0 06/03/2025 8:31 PM CDT [facility] PROTEIN RANDOM (U) NEGATIVE NEGATIVE 06/03/2025 8:31 PM [facility] GLUCOSE (U) NEGATIVE NEGATIVE 06/03/2025 8:31 PM [facility] KETONES MG/DL (U) NEGATIVE NEGATIVE 06/03/2025 8:31 PM [facility] BILIRUBIN (U) NEGATIVE NEGATIVE 06/03/2025 8:31 PM [facility] BLOOD (U) NEGATIVE NEGATIVE 06/03/2025 8:31 PM [facility] UROBILINOGEN 0.2 0.0 - 2.0 EU/DL 06/03/2025 8:31 PM [facility] NITRITES NEGATIVE NEGATIVE 06/03/2025 8:31 PM [facility] LEUKOCYTES (U) NEGATIVE NEGATIVE 06/03/2025 8:31 PM [facility] RBC/HPF 0-3 0 - 3 /HPF 06/03/2025 8:31 PM T [facility] WBC/HPF 0-3 0 - 3 /HPF 06/03/2025 8:31 PM T [facility] EPI/HPF 0-3 /HPF 06/03/2025 8:31 PM T [facility] BACTERIA (U) TRACE(A) NONE SEEN 06/03/2025 8:31 PM [facility] COMMENT (U) Less than 12 ml urine submitted. 06/03/2025 8:31 PM CDT [facility] URINE SPECIMEN OBTAINED BY CLEAN CATCH PROCEDURE / Unknown 06/03/2025 10:40 AM CDT Lester Mane MD URINE ORDERABLES Final Result Performing Organization Address City/[facility] Co de Phone Number [facility] [address] [place] [address], * URINE BACTERIA CULTURE (06/03/2025 10:40 AM CDT) SPEC DESCRIPTION URINE CLEAN CATCH 06/03/2025 10:[address] [facility] SPECIAL REQUESTS NO SPECIAL REQUEST 06/03/2025 10:[address] [facility] CULTURE RESULT NO GROWTH (< OR = 1,000 CFU/ML) 06/06/2025 10:[address] [facility] URINE SPECIMEN OBTAINED BY CLEAN CATCH PROCEDURE / Unknown 06/03/2025 10:40 AM CDT 06/04/2025 2:58 PM CDT Lester Mane MD MICROBIOLOGY - GENERAL ORDERABLE S Final Result Performing Organization Address City/[facility] Co de Phone Number [facility] [address] [place] [address], [phone] * (ABNORMAL) BASIC METABOLIC PANEL (06/03/2025 10:40 AM CDT) Only the most recent of2 resultswithin the time period is included. SODIUM S/P/B 139 136 - 145 MMOL/L 06/04/2025 9:39 AM CDT [facility] POTASSIUM S/P/B 3.9 3.5 - 5.1 MMOL/L 06/04/2025 9:39 AM CDT [facility] CHLORIDE S/P/B 101 98 - 107 MMOL/L 06/04/2025 9:39 AM T [facility] CO2 31.9 21 - 32 MMOL/L 06/04/2025 9:39 AM T [facility] GLUCOSE 86 70 - 99 MG/DL 06/04/2025 9:39 AM T [facility] BUN 11 7 - 18 MG/DL 06/04/2025 9:39 AM T [facility] CREATININE S/P/B 0.84 0.55 - 1.02 MG/DL 06/04/2025 9:39 AM T [facility] CALCIUM S/P/B 9.0 8.4 - 10.5 MG/DL 06/04/2025 9:39 AM [facility] ANION GAP 6.1 5 - 15 MMOL/L 06/04/2025 9:39 AM T [facility] Comment:REFERENCE RANGE NOT ESTABLISHED OSMOLALITY (CALC) 287 MOSM/KG 025 9:39 AM T [facility] Comment:REFERENCE RANGE NOT ESTABLISHED GFR ESTIMATE 71(L) >90 ML/MIN/1. 73 M2 06/04/2025 9:39 AM [facility] GFR NOTES GFR REFERENCE S: 06/04/2025 9:39 AM [facility] Comment: THE ESTIMATED GFR IS CALCULATED USING THE 2020 CKD-EPI EQUATION. THE FOLLOWING CATEGORIES FOR GRADING RENAL FUNCTION ARE RECOMMENDED BY THE INTERNATIONAL SOCIETY OF NEPHROLOGY (KDIGO 2012 CLINICAL PRACTICE GUIDELINE). G1,NORMAL OR HIGH: >89 ml/min/1.73 m2 G2,MILDLY DECREASED: 60-89 ml/min/1.73 m2 G3A,MILDLY TO MODERATELY DECREASED: 45-59 ml/min/1.73 m2 G3B,MODERATELY TO SEVERELY DECREASED: 30-44 ml/min/1.73 m2 G4,SEVERELY DECREASED: 15-29 ml/min/1.73 m2 G5,KIDNEY FAILURE: <15 ml/min/1.73 m2 06/03/2025 10:4 0 AM CDT Lester Mane MD LABORATORY Final Result [facility] [address] [place] [address], [place] [phone] * EKG [place]EL[place] ACQUIRED (05/16/2025 2:01 PM CDT) Only the most recent of2 resultswithin the time period is included. 05/16/2025 2:01 PM CDT Narrative [facility] - 05/26/2025 6:26 PM CDT [place] [address] [place] [address] Test Date: 2025-05-16 Pat Name: DENITAULISSES MELCHOR Department: 171 Room: Gender: Female Candy Spreader: : [id number] Requested By: LESTER MANE Order Number: [id number] Reading MD: Lester Mane Measurements Intervals [place] Rate: 123 P: 0 NV: 0 QRS: 80 QRSD: 93 T: 148 QT: 343 QTc: 492 Interpretive Statements ATRIAL FIBRILLATION WITH RAPID VENTRICULAR RESPONSE NONSPECIFIC ST & T-WAVE ABNORMALITY INTERPRETATION BASED ON A DEFAULT AGE OF 41 YEARS Procedure Note Lester Mane MD - 05/26/2025 [facility] [place] [address] [address] Test Date: 2025-05-16 Pat Name: DENITA MELCHOR Department: 171 Room: Gender: Female Candy Spreader: : 1945 Requested By: LESTER MANE Order Number: [id number] Reading CHEL Mane Measurements Intervals [place] Rate: 123 P: 0 NV: 0 QRS: 80 QRSD: 93 T: 148 QT: 343 QTc: 492 Interpretive Statements ATRIAL FIBRILLATION WITH RAPID VENTRICULAR RESPONSE NONSPECIFIC ST & T-WAVE ABNORMALITY INTERPRETATION BASED ON A DEFAULT AGE OF 41 YEARS Lester Mane MD PROCEDURES-ORDERABLE NO CHARGE F inal Result [facility] RAD * (ABNORMAL) URINALYSIS AUTO DIP (05/14/2025) Only the most recent of2 resultswithin the time period is included. COLOR (U) YELLOW YELLOW [address], [place] TRANSPARENCY CLEAR CLEAR [address], [place] GLUCOSE (U) NEGATIVE NEGATIVE MG/DL MG-[address], [place] BILIRUBIN (U) NEGATIVE NEGATIVE MG-[address], [place] KETONES MG/DL (U) NEGATIVE NEGATIVE MG/DL MG-[address], [place] SPECIFIC GRAVITY (U) 1.015 1.001 - 1.035 MG-[address], [place] BLOOD (U) TRACE (Non Hemolyzed, Intact)(A) NEGATIVE MG-[address], [place] U PH 7.0 5.0 - 9.0 MG-[address], [place] PROTEIN (U) TRACE(A) NEGATIVE mg/dL MG-[address], [place] UROBILINOGEN 0.2 0.2 - 1.0 EU/dL = mg/dL MG-[address], [place] NITRITES NEGATIVE NEGATIVE MG/DL MG-[address], [place] LEUKOCYTES (U) NEGATIVE NEGATIVE MG-[address], [place] URINE SPECIMEN OBTAINED BY CLEAN CATCH PROCEDURE / Unknown 05/14/2025 Lester Mane MD URINE ORDERABLES Final Result [address], [place] [address] [place] [address], * XA CARDIOVERSION DCC (05/07/2025 12:34 PM CDT) Anatomical Region Laterality Modality Cardiac Vp Clinical Narrative 05/09/2025 6:33 AM CDT [facility] CARDIAC CATHETERIZATION/EP LAB [phone] x [phone] Cardioversion Patient Name: Denita Melchor Date of : 1945 Medical Record: #[id number] Account: #[id number] Physician: Milad Arrington MD Date: 05/07/2025 Procedure: #[id number] DIAGNOSIS: Atrial Fibrillation OPERATIVE NOTE: Under general anesthesia, in the presence of Dr. Arrington, the patient underwent synchronized cardioversion at 360 joules, biphasic, with successful cardioversion to normal sinus rhythm. Patient tolerated the procedure well. Estimated Blood Loss: None Specimens Removed: None Complications: None CONCLUSION: Successful cardioversion with 360 joules into normal sinus rhythm. Milad Arrington MD /vs Interpreted: 05/07/25 Transcribed: 05/08/25 us Dayanna CHAVEZ [employer] DESK TEAM MEMBER Final R esult * ECG 12 lead (05/07/2025 12:19 PM CDT) 05/07/2025 12:1 9 PM CDT Narrative [facility] ([facility] RAD - 05/07/2025 10:21 PM CDT [address] Test Date: 2025-05-07 Pat Name: DENITA MELCHOR Department: 40 Room: [facility] Gender: Female Candy Spreader: : 1945 Requested By: IMLAD ARRINGTON Order Number: [id number] Reading MD: Gavin Keys Measurements Intervals [place] Rate: 59 P: 95 NV: 187 QRS: 57 QRSD: 97 T: 123 QT: 462 QTc: 461 Interpretive Statements SINUS BRADYCARDIA WITH SINUS ARRHYTHMIA NONSPECIFIC ST & T-WAVE ABNORMALITY Compared to ECG 04/17/2025 13:43:30 Atrial fibrillation no longer present Procedure Note Gavin Keys MD - 05/07/[address] [place] Test Date: 2025-05-07 Pat Name: DENITA MELCHOR Department: 40 Room: [facility] Gender: Female Candy Spreader: : 1945 Requested By: MILAD ARRINGTON Order Number: [id number] Reading MD: Gavin Keys Measurements Intervals [place] Rate: 59 P: 95 NV: 187 QRS: 57 QRSD: 97 T: 123 QT: 462 QTc: 461 Interpretive Statements SINUS BRADYCARDIA WITH SINUS ARRHYTHMIA NONSPECIFIC ST & T-WAVE ABNORMALITY Compared to ECG 04/17/2025 13:43:30 Atrial fibrillation no longer present us Milad Arrington MD ECG ORDERABLES Final Resul t Performing Organization Address [facility] Co de Phone Number [facility] RAD * (ABNORMAL) PROTHROMBIN TIME, VENOUS (05/07/2025 8:48 AM CDT) Pathologist [facility] PROTIME 17.9(H) 10.2 - 12.9 SEC 05/07/2025 9:10 AM CDT [facility] INR 1.6 05/07/2025 9:10 AM CDT [facility] Comment: Recommended INR Therapeutic Goals: 2.0-3.0 Routine Therapy 2.5-3.5 Mechanical Prosthetic Valves (High Risk) 05/07/2025 8:48 AM CDT us Dayanna Birch PA LABORATORY Final R esult Performing Organization Address City/[facility]/ZIP Co de Phone Number [facility] [address] [place] [address], [place] [phone] * (ABNORMAL) CBC W/DIFF AUTOMATED (05/07/2025 8:48 AM CDT) WBC 4.28(L) 4.5 - 11.0 x10'3/uL 05/07/2025 9:03 AM CDT [facility] RBC 3.49(L) 4.20 - 5.40 x10'6/uL 05/07/2025 9:03 AM CDT [facility] HGB 10.4(L) 12.0 - 16.0 G/DL 05/07/2025 9:03 AM CDT [facility] HCT 32.9(L) 38.0 - 48.0 % 05/07/2025 9:03 AM CDT [facility] MCV 94.3 81.0 - 99.0 FL 05/07/2025 9:03 AM CDT [facility] MCH 29.8 27.0 - 31.0 PG 05/07/2025 9:03 AM CDT [facility] MCHC 31.6(L) 32.0 - 36.0 G/DL 05/07/2025 9:03 AM CDT [facility] RDW 14.6(H) 11.5 - 14.5 % 05/07/2025 9:03 AM CDT [facility] PLT 281 130 - 400 x10'3/uL 05/07/2025 9:03 AM T [facility] MPV 9.6 9.3 - 12.2 FL 05/07/2025 9:03 AM CDT [facility] DIFFERENTIAL TYPE MANUAL DIFFERENTIAL 05/07/2025 9:38 AM CDT [facility] SEG NEUTROPHILS 65 % 9:38 AM CDT [facility] LYMPHOCYTES 12 % 05/07/2025 9:38 AM CDT [facility] MONOCYTES 10 % 05/07/2025 9:38 AM CDT [facility] EOSINOPHILS 12 % 05/07/2025 9:38 AM CDT [facility] BANDS 1 % 05/07/2025 9:38 AM CDT [facility] ABS. NEUTROPHILS 2.82 1.80 - 7.70 x10'3/uL 05/07/2025 9:38 AM CDT [facility] ABS. LYMPHOCYTES 0.51(L) 1.00 - 4.80 x10'3/uL 05/07/2025 9:38 AM CDT [facility] ABS. MONOCYTES 0.43 0.24 - 0.86 x10'3/uL 05/07/2025 9:38 AM CDT [facility] ABS. EOSINOPHILS 0.51(H) 0.04 - 0.36 x10'3/uL 05/07/2025 9:38 AM CDT [facility] RBC MORPHOLOGY RBC MORPHOLOGY APPEARS NORMAL. SLIDE REVIEWED. 05/07/2025 9:38 AM CDT [facility] PLT EST. ADEQUATE 05/07/2025 9:38 AM CDT [facility] 05/07/2025 8:48 AM CDT Dayanna CHAVEZ LABORATORY Final R esult [facility] [address] [place] [address], * TSH W/REFLEX (04/16/2025 10:40 AM CDT) TSH 3.095 0.358 - 3.740 uIU/ML 04/17/2025 10:33 AM CDT [facility] 04/16/2025 10:4 0 AM CDT us Lester Mane MD LABORATORY Final Result Performing Organization Address [facility] Co de Phone Number [address] [place] [address], [place] [phone] * FREE T3 (04/16/2025 10:40 AM CDT) FREE T3 2.4 2.2 - 3.9 PG/ML 04/17/2025 11:[address] [facility] 04/16/2025 10:4 0 AM CDT Lester Mane MD LABORATORY Final Result Performing Organization Address [facility] de Phone Number [facility] [address] [place] [address], [place] [phone] * THYROXINE, FREE (FT4) (04/16/2025 10:40 AM CDT) FREE T4 1.15 0.76 - 1.46 NG/DL 04/17/2025 10:33 AM CDT [facility] 04/16/2025 10:4 0 AM CDT Lester Mane MD LABORATORY Final Result Performing Organization Address [facility] Co de Phone Number [address] [place] [address], [place] [phone] * USE ECHOCARDIOGRAM (04/04/2025 2:48 PM CDT) Anatomical Region Laterality Modality Cardiac Echocardiogram 04/04/2025 2:31 PM CDT Narrative 04/04/2025 6:41 PM CDT Echocardiography Report Pat.Name: KATHY MELCHORN Pat.ID: [id number] .Date: 04/04/2025 Refer.: [id number] PETROS ESCOBAR Exam Time: 2:31:00 PM Study Type:ECHO WITH CARDIAC DOPPLER COMP Height: 62 in Weight: 205 lb BSA: 1.93 m2 Age: 806/21/1945,79Y Sex: F BP: 101/39 Sonogrphr: [place], Sara TJ Pat. Stat.:Outpatient CPT - 4: [id number] Reason for Study:Atrial fibrillation / flutter Procedures: 2D, M-mode, Doppler, Color Flow ++++++++++++++++++++++++++++++++++++ SUMMARY: ++++++++++++++++++++++++++++++++++++ The left ventricular systolic function is normal. Estimated left ventricular ejection fraction is 55-60%. Moderate asymmetrical left ventricular hypertrophy. Left ventricular diastolic function is not accessible due to atrial fibrillation. Wall motion appears normal in all segments. Mild aortic and tricuspid regurgitation. Right ventricular systolic pressure is 35-45 mmHg suggestive of mild to moderate pulmonary hypertension. ++++++++++++++++++++++++++++++++++++ FINDINGS: ++++++++++++++++++++++++++++++++++++ LV: The left ventricular size is normal. The left ventricular systolic function is normal. Estimated left ventricular ejection fraction is 55-60%. Moderate asymmetrical left ventricular hypertrophy. The septal E/e' is elevated at >15. The lateral E/e' is elevated at >11. Left ventricular diastolic function is not accessible due to atrial fibrillation. WM: Wall motion appears normal in all segments. RV: The right ventricular size is normal. Right ventricular systolic function is normal. TAPSE = 17.2mm (<16 mm indicates systolic RV dysfunction). IVS: No evidence of ventricular septal defect. LA: The left atrial volume is mildly increased (34- 41ml/M2). RA: Right atrial size is mildly enlarged. IAS: Atrial septum appears intact. CHICA: No evidence of pericardial effusion. AO: Normal aortic root. PA: Estimated right atrial pressure of 3 mmHg. SVn: Inferior vena cava is normal. Inferior vena cava shows >50% collapse with respiration consistent with normal right atrial pressure. AV: The aortic valve is trileaflet. No evidence of aortic valve stenosis. Mild aortic regurgitation. MV: Structurally normal mitral valve. No evidence of significant mitral regurgitation. No evidence of mitral stenosis. PV: No evidence of pulmonic valve stenosis. A trace of pulmonic regurgitation. TV: Mild tricuspid regurgitation. Right ventricular systolic pressure is 35-45 mmHg suggestive of mild to moderate pulmonary hypertension. No evidence of tricuspid valve stenosis. ++++++++++++++++++++++++++++++++++++ MEASUREMENTS: ++++++++++++++++++++++++++++++++++++ 2D Left Ventricle LVIDd 4.26 cm (3.6-5.2) LVEDV BP 68.9 ml LV EDV 86.9 ml LVESV BP 27.2 ml LV ESV 32.7 ml LV EF 62.4 % LV EDV 52.1 ml Left Ventricula -18.9 % LV ESV 22.5 ml LV EF 56.8 % LV EF BP 60.5 % Left Ventricula -14.7 % Left Ventricula -16.8 % Aortic Valve Aortic Root Samantha 3.57 cm Left atrial samantha 4.91 cm Left Atrium Left Atrium Vol 37.7 ml/m2 LA Biplane Left Atrium Vol 72.7 ml LA Single Plane Left Atrium alma 6.78 cm Left Atrium alma 7.14 cm Left Atrium Vol 69.4 ml Left Atrium Vol 72.8 ml LV Teichholz Interventricula 1.66 cm Left Ventricle 3.25 cm Left Ventricle 1.23 cm Heart rate 76 Heart beat per minute Right Atrium RA sys Area 20.6 cm2 Right Ventricle Right Ventricul 2.9 cm RVIDd 3.57 cm MMODE Tricuspid Valve Tricuspid annul 1.72 cm DOPPLER Aortic Valve P1/2t 0.393 second LVOT/AoV (TERMINAL CLERK) ( 0.47 AV Antegrade Flow Peak Velocity ( 1.65 m/s Mean Velocity ( 1.1 m/s Velocity Time I 30.4 cm AV Antegrade Flow Simplified Bernoulli Gradient pressu 11 mmHg Gradient pressu 5.5 mmHg AV Regurgitant Flow AR Vmax (Diasto 3.31 m/s Deceleration Ti 0.446 second AR Jordan (Diastol 2.21 m/s AR PGmax (Diast 44.1 mmHg Deceleration Sl 2.66 m/s2 LV Antegrade Flow Peak Velocity ( 0.77 m/s Mean Velocity ( 0.56 m/s Velocity Time I 15.1 cm LV Antegrade Flow Simplified Bernoulli Gradient pressu 2.4 mmHg Gradient pressu 1.4 mmHg Mitral Valve Mitral Valve E- 0.134 second Ratio of Mitral 19.7 Myocardial Velo 8.1 centimeter/second Ratio of Mitral 17.2 Myocardial Velo 6 centimeter/second Ratio of Mitral 23.3 Mean Myocardial 7.1 centimeter/second MV Antegrade Flow Mitral Valve E- 1.4 m/s PV Antegrade Flow Peak Velocity ( 0.98 m/s Mean Velocity ( 0.66 m/s Velocity Time I 17.2 cm PV Antegrade Flow Simplified Bernoulli Gradient pressu 3.8 mmHg Gradient pressu 1.9 mmHg Tricuspid Valve Tricuspid Valve 0.66 m/s TV Regurgitant Flow MaximumTricuspi 3.13 m/s MaximumTricuspi 39.2 mmHg <Electronic Signature> 04/04/2025 06:41 PM Hilda Gonzales M.D. Procedure Note Hilda Gonzales MD - 04/04/2025 Echocardiography Report Pat.Name: DENITA MELCHOR Pat.ID: [id number] .Date: 04/04/2025 Refer.: [id number] [facility] Exam Time: 2:31:00 PM Study Type:ECHO WITH CARDIAC DOPPLER COMP Height: 62 in Weight: 205 lb BSA: 1.93 m2 Age: 806/21/1945,79Y Sex: F BP: 101/39 Sonogrphr: Kalyani Benson Pat. Stat.:Outpatient CPT - 4: 11038 Reason for Study:Atrial fibrillation / flutter Procedures: 2D, M-mode, Doppler, Color Flow ++++++++++++++++++++++++++++++++++++ SUMMARY: ++++++++++++++++++++++++++++++++++++ The left ventricular systolic function is normal. Estimated left ventricular ejection fraction is 55-60%. Moderate asymmetrical left ventricular hypertrophy. Left ventricular diastolic function is not accessible due to atrial fibrillation. Wall motion appears normal in all segments. Mild aortic and tricuspid regurgitation. Right ventricular systolic pressure is 35-45 mmHg suggestive of mild to moderate pulmonary hypertension. ++++++++++++++++++++++++++++++++++++ FINDINGS: ++++++++++++++++++++++++++++++++++++ LV: The left ventricular size is normal. The left ventricular systolic function is normal. Estimated left ventricular ejection fraction is 55-60%. Moderate asymmetrical left ventricular hypertrophy. The septal E/e' is elevated at >15. The lateral E/e' is elevated at >11. Left ventricular diastolic function is not accessible due to atrial fibrillation. WM: Wall motion appears normal in all segments. RV: The right ventricular size is normal. Right ventricular systolic function is normal. TAPSE = 17.2mm (<16 mm indicates systolic RV dysfunction). IVS: No evidence of ventricular septal defect. LA: The left atrial volume is mildly increased (34- 41ml/M2). RA: Right atrial size is mildly enlarged. IAS: Atrial septum appears intact. CHICA: No evidence of pericardial effusion. AO: Normal aortic root. PA: Estimated right atrial pressure of 3 mmHg. SVn: Inferior vena cava is normal. Inferior vena cava shows >50% collapse with respiration consistent with normal right atrial pressure. AV: The aortic valve is trileaflet. No evidence of aortic valve stenosis. Mild aortic regurgitation. MV: Structurally normal mitral valve. No evidence of significant mitral regurgitation. No evidence of mitral stenosis. PV: No evidence of pulmonic valve stenosis. A trace of pulmonic regurgitation. TV: Mild tricuspid regurgitation. Right ventricular systolic pressure is 35-45 mmHg suggestive of mild to moderate pulmonary hypertension. No evidence of tricuspid valve stenosis. ++++++++++++++++++++++++++++++++++++ MEASUREMENTS: ++++++++++++++++++++++++++++++++++++ 2D Left Ventricle LVIDd 4.26 cm (3.6-5.2) LVEDV BP 68.9 ml LV EDV 86.9 ml LVESV BP 27.2 ml LV ESV 32.7 ml LV EF 62.4 % LV EDV 52.1 ml Left Ventricula -18.9 % LV ESV 22.5 ml LV EF 56.8 % LV EF BP 60.5 % Left Ventricula -14.7 % Left Ventricula -16.8 % Aortic Valve Aortic Root Samantha 3.57 cm Left atrial samantha 4.91 cm Left Atrium Left Atrium Vol 37.7 ml/m2 LA Biplane Left Atrium Vol 72.7 ml LA Single Plane Left Atrium alma 6.78 cm Left Atrium alma 7.14 cm Left Atrium Vol 69.4 ml Left Atrium Vol 72.8 ml LV Teichholz Interventricula 1.66 cm Left Ventricle 3.25 cm Left Ventricle 1.23 cm Heart rate 76 Heart beat per minute Right Atrium RA sys Area 20.6 cm2 Right Ventricle Right Ventricul 2.9 cm RVIDd 3.57 cm MMODE Tricuspid Valve Tricuspid annul 1.72 cm DOPPLER Aortic Valve P1/2t 0.393 second LVOT/AoV (TERMINAL CLERK) ( 0.47 AV Antegrade Flow Peak Velocity ( 1.65 m/s Mean Velocity ( 1.1 m/s Velocity Time I 30.4 cm AV Antegrade Flow Simplified Bernoulli Gradient pressu 11 mmHg Gradient pressu 5.5 mmHg AV Regurgitant Flow AR Vmax (Diasto 3.31 m/s Deceleration Ti 0.446 second AR Jordan (Diastol 2.21 m/s AR PGmax (Diast 44.1 mmHg Deceleration Sl 2.66 m/s2 LV Antegrade Flow Peak Velocity ( 0.77 m/s Mean Velocity ( 0.56 m/s Velocity Time I 15.1 cm LV Antegrade Flow Simplified Bernoulli Gradient pressu 2.4 mmHg Gradient pressu 1.4 mmHg Mitral Valve Mitral Valve E- 0.134 second Ratio of Mitral 19.7 Myocardial Velo 8.1 centimeter/second Ratio of Mitral 17.2 Myocardial Velo 6 centimeter/second Ratio of Mitral 23.3 Mean Myocardial 7.1 centimeter/second MV Antegrade Flow Mitral Valve E- 1.4 m/s PV Antegrade Flow Peak Velocity ( 0.98 m/s Mean Velocity ( 0.66 m/s Velocity Time I 17.2 cm PV Antegrade Flow Simplified Bernoulli Gradient pressu 3.8 mmHg Gradient pressu 1.9 mmHg Tricuspid Valve Tricuspid Valve 0.66 m/s TV Regurgitant Flow MaximumTricuspi 3.13 m/s MaximumTricuspi 39.2 mmHg <Electronic Signature> 04/04/2025 06:41 PM Hilda Gonzales M.D. us Lseter Mane MD ECHO Final Result * CLINIC - [id number] MCT - Today (04/02/2025 9:00 AM CDT) Impressions [facility] - 04/02/2025 9:00 AM CDT [place], [place] [address] MOBILE CARDIAC TELEVISION CABLE INSTALLER REPORT Patient Name: Denita Melchor : 1945 Leading Firefighter Date: 03/21/2025 End Date: 03/27/2025 Performed At: [place], [place] Interpreting Mortgage Loan Assistant: Milad Arrington MD PCP: LESTER MANE MD Ordering Provider: MILAD ARRINGTON MD INDICATION: paroxsymal atrial fibrillation DURATION OF MONITORIN days NUMBER OF TRANSMISSIONS: 14 (14 auto transmissions, 0 manual, 0 periodic) INTERPRETATION: A 7-day mobile cardiac youth nutritional monitor analyzed. Interpretable data was 6 days, 0 hours and 0 minutes (97% of monitoring period). The baseline rhythm was atrial fibrillation with controlled ventricular response. There was persistent atrial fibrillation observed. . A minimum heart rate was 55 bpm on 03/25/2025 at 5:28 AM. A maximum heart rate in sinus rhythm was 139 bpm on 03/26/2025 at 9:33 AM. There were 0 pauses observed. The manual triggered episodes atrial flutter and fibrillation with controlled and rapid ventricular response. The overall ectopy burden was low at <1% CONCLUSION: 7-day mobile cardiac telemetry was only notable for persistent atrial fibrillation with an average rate of 76 bpm. Interpreting Mortgage Loan Assistant: Dr. Milad Arrington Milad Arrington MD CV VASCULAR ORDERABLES Gabrielle l Result [facility] * BONE DENSITY/DEXA (03/18/2025 2:10 PM CDT) Anatomical Region Laterality Modality Bone Mammography 03/18/2025 2:29 PM CDT Impressions 03/18/2025 2:32 PM CDT IMPRESSION: WHO Classification: Osteoporosis. RECOMMENDATIONS: All patients should ensure an adequate intake of dietary calcium and vitamin D. The NOF recommend adults under the age of 50 need 1000 mg of calcium and 400-800 IU of vitamin D daily. Effective therapy for the prevention and treatment of osteoporosis include bisphosphonates. FOLLOW-UP: People with diagnosed cases of osteoporosis or at high risk for fracture should have regular bone mineral density test. For patients eligible for Medicare, routine testing is allowed once every 2 years. Testing frequency can be increased to one year for patients who have rapidly progressing disease, those who are receiving or discontinuing medical therapy to restore bone mass, or have additional risk factors. Ordered By: LESTER MANE Interpreted By: Marco Antonio Jessica, 03/18/2025 2:29 PM Narrative 03/18/2025 2:32 PM CDT [facility] [address] [place] [address] EXAMINATION: BONE DENSITY/DEXA INDICATIONS: Other specified disorders of bone density and structure, multiple sites COMPARISON: None TECHNIQUE: DEXA bone mineral density evaluation was performed in the AP projection over the lumbar spine and both hips utilizing standard imaging techniques. FINDINGS: The BMD measured at the AP spine L1-L4 is 0.786 g/cm? with a T-score of -2.4. The BMD measured at the left femoral neck is 0.543 g/cm? with a T-score of -2.8. The BMD measured at the left hip is 0.729 g/cm? with a T-score of -1.7. The BMD measured at the right femoral neck is 0.604 g/cm? with a T-score of - 2.2. The BMD measured at the right hip is 0.756 g/cm? with a T-score of -1.5. FRAX 10-year fracture risk: Major Osteoporotic Fracture: 18% Hip Fracture: 6.2% Procedure Note Marco Antonio Jessica MD - 03/18/2025 [facility] [address] [place] [address] EXAMINATION: BONE DENSITY/DEXA INDICATIONS: Other specified disorders of bone density and structure,multiple sites COMPARISON: None TECHNIQUE: DEXA bone mineral density evaluation was performed in the APprojection over the lumbar spine and both hips utilizing standard imagingtechniques. FINDINGS: The BMD measured at the AP spine L1-L4 is 0.786 g/cm? with a T-score of-2.4. The BMD measured at the left femoral neck is 0.543 g/cm? with a T-score of-2.8. The BMD measured at the left hip is 0.729 g/cm? with a T-score of -1.7. The BMD measured at the right femoral neck is 0.604 g/cm? with a T-scoreof -2.2. The BMD measured at the right hip is 0.756 g/cm? with a T-score of -1.5. FRAX 10-year fracture risk: Major Osteoporotic Fracture: 18% Hip Fracture: 6.2% IMPRESSION: WHO Classification: Osteoporosis. RECOMMENDATIONS: All patients should ensure an adequate intake of dietary calcium andvitamin D. The NOF recommend adults under the age of 50 need 1000 mg ofcalcium and 400-800 IU of vitamin D daily. Effective therapy for theprevention and treatment of osteoporosis include bisphosphonates. FOLLOW-UP: People with diagnosed cases of osteoporosis or at high risk for fractureshould have regular bone mineral density test. For patients eligible forMedicare, routine testing is allowed once every 2 years. Testing frequencycan be increased to one year for patients who have rapidly progressingdisease, those who are receiving or discontinuing medical therapy torestore bone mass, or have additional risk factors. Ordered By: LESTER MANE Interpreted By: Marco Antonio Jessica, 03/18/2025 2:29 PM us Lester Mane MD DEXA Final Result * HEPATITIS C ANTIBODY (03/11/2025 2:29 PM CDT) HEPATITIS C AB NON-REACTI VE NON-REACT KI 03/11/2025 9:[address] [facility] Comment: ANTIBODIES TO HCV NOT DETECTED. DOES NOT EXCLUDE THE POSSIBILITY OF EXPOSURE TO HCV. 03/11/2025 2:29 PM CDT us Lester Mane MD LABORATORY Final Result [facility] [address] [place] [address], [id number] from Last 3 Months or Most Recently Relevant to Health Maintenance Insurance MEDICARE [facility] MEDICAID Advance Directives Documents on File Type Date Recorded Patient Bus Transportation Manager Expl anation Power of Water Taxi Driver 02/26/2025 3:38 PM Power of Water Taxi Driver-Daughter Gifty Vela * Full Code (Latest Code Status on File) Date Activated Date Inactivated Comments 05/07/2025 1:30 PM 05/07/2025 4:11 PM Care Teams Senior Mechanical Project Manager Relationship Specialty Start Date End Date Lester Mane MD [address] [facility] [address] [place] [address] PCP - General INTERNAL MEDICINE 12/27/24
--- OUTSIDE RECORDS SUMMARY | 2025-06-26 10:29 | XMS_ITS ---
Author Organization [facility] Address [address] [facility] [address] [place], [place] [id number] Care Team Providers Care Astronomy Teacher Name Role Phone RADHA FALL Unavailable [phone] Irene Webb Unavailable REASON FOR VISIT *General care Encounters Encounter Location Date Provider Diagnosis [facility] [address] [facility] [address] [place], [place] [id number] 01/07/2025 RADHA FALL Plan Of Treatment Next Appt Details Provider Name:RADHA HELMG, 07/17/2025 02:20:00 PM, [address], [address], [id number], Progress Notes * RUIZ SWEETIE ADOB: [birth year] (80 yo F)Acc No.[id number]:01/07/2025 Patient: ALAYNA ROCHAULISSES Hutchinson Provider: Randa Fall DPM :1945 A ge:79 Y S ex:Female Date:01/07/2025 Address:[address] [facility] Subjective: * Chief Complaints: * 1 . *General care. * Medical History: Objective: * Vitals: Assessment: Plan: * Treatment: * Billing Information: * Visit Code: * Procedure Codes: * Electronic signature of RADHA FALL DPM on 06/26/2025 at 10:29 AM CDT Sign off status: Pending * Provider: Randa Fall, LOKESH Date: 0 01/07/2025 Generated for Rick mcdermott/Paulo/Juani on: 0 06/26/2025 10:29 AM CDT
--- OUTSIDE RECORDS SUMMARY | 2025-06-26 10:29 | XMS_ITS | Encounter Summary ---
Author Organization [facility] Address [address] [place] [address] Care Team Providers Care Library Science Professor Name Role Phone Lester Mane MD Primary Care Provider Encounter Details Date Type Department Care Team (Latest Contact Info) Description 06/02/2025 MyChart Message Enc [facility] Multispecialty Care - [address] [address] [address] [place], [place] [phone] Lester Mane MD [address] [facility] [address] [place], [place] [phone] Denita legal worse Social History Tobacco Use Types Packs/Day Years [...] 07/03/2025 9:[address] [facility] Credit Reporting Clerk [facility] [place] [address] Dayanna Birch PA [address] [facility] [address] [place] [address] Candelario Espinoza MD [facility]. [address] [place] [address] 07/08/2025 2:00 PM CDT Office Visit [facility] Medical [facility]pec[facility] Care - [address] [address] [address] [place] [address] Lester Mane MD [address] [address] 07/29/2025 2:00 PM CDT Office Visit [facility] [address] [facility], [address] [place] [address] Dayanna Lopez NP [address] [facility] [address] [place] [address] documented as of this encounter Visit Diagnoses Not on filedocumented in this encounter Additional Health Concerns Assessment Noted Time PHQ-9 Depression Total Score: 14 025 3:34 PM CDT documented as of this encounter Care Teams Library Science Professor Relationship Specialty Start Date End Date Lester Mane MD [address] [phone] PCP - General INTERNAL MEDICINE 12/27/24 documented as of this encounter
[2025-06-26 11:06] LABS: Hematocrit 38.2 % (37.0-47.0); Hemoglobin 12.1 g/dL (12.0-15.0); Immature Granulocyte Percent A 0.3 % (0-0.5); Lymphocytes Absolute Auto 1.13 K/mm3 (0.9-3.2); Mean Corpuscular HGB Conc 31.7 g/dl (32-36); Mean Corpuscular Hemoglobin 29.7 pg (26-34); Mean Corpuscular Volume 93.9 fl (80-100); Nucleated Red Blood Cells Absolute Auto 0.000 K/mm3 (0.0-0.012); Nucleated Red Blood Cells Perc 0.0 % (0.0-0.2); Platelet Count Result 328 k/mm3 (150-375); Red Blood Count 4.07 M/mm3 (4.2-5.4); White Blood Count 6.2 K/mm3 (4.5-10.0)
[2025-06-26 11:19] LABS: INR 1.2; Prothrombin Time 14.7 Seconds (11.1-14.7)
[2025-06-26 11:31] LABS: Anion Gap 7 mmol/L (4-12); Blood Urea Nitrogen 10 mg/dL (7-17); Calcium 8.5 mg/dL (8.4-10.2); Carbon Dioxide 31 mmol/L (22-30); Chloride 101 mmol/L (98-107); Estimated Glomerular Filt Rate > 60; Glucose 146 mg/dL (65-110); Potassium 2.9 mmol/L (3.4-5.0); Sodium 139 mmol/L (137-145)
== END 2025-06-26 09:59 | disposition home or self-care (01) ==
PROVIDERS: PCP Internal Medicine
DX: I48.0 Paroxysmal atrial fibrillation (principal)
CPT/HCPCS: 36415; 80048; 85025; 85610